=== PATIENT | female | born 1970 | race Two or more races ===

== ENCOUNTER 2016-09-01 14:36 | Emergency (ER) | payer MEDICAID ==
[~2016-09-01] VITALS: Ht 165.1 cm; Wt 68.0 kg
[2016-09-01] MEDS ORDERED: SODIUM CHLORIDE 0.9% 1,000 ML IVB ONE (16:02)
[2016-09-01 16:23] LABS: Basophils # (auto) 0 uL; Basophils % (auto) 0.4 % (0.0-2.0); DEFINITIVE VIEW TRANSMISSION; Eosinophils # (auto) 0 uL; Eosinophils % (auto) 0.2 % (0.0-7.0); Hematocrit 36.2 % (36.0-46.0); Lymphocytes # (auto) 1.6 uL; Lymphocytes % (auto) 16.8 % (10.0-50.0); Mean Corpuscular Hemoglobin 22.2 pg (28.0-32.0); Mean Corpuscular Hgb Conc. 30.5 g/dL (32.0-36.0); Mean Corpuscular Volume 72.8 fL (80.0-100.0); Mean Platelet Volume 7.5 fL (7.4-10.4); Monocytes # (auto) 0.4 uL; Monocytes % (auto) 4.1 % (0.0-12.0); Neutrophils # (auto) 7.4 uL; Neutrophils % (auto) 78.5 % (37.0-80.0); Platelet Count (auto) 353 10^3/uL (140-450); White Blood Cell 9.4 10^3/uL (4.4-10.8)
[2016-09-01 16:28] LABS: Alkaline Phosphatase 124 U/L (45-117); Anion Gap 10 (5-15); Aspartate Aminotransferase 23 U/L (15-37); BUN/Creatinine Ratio 9.6; Bilirubin, Total 0.3 mg/dL (0.2-1.0); Blood Urea Nitrogen 8 mg/dL (7-18); Calcium 8.4 mg/dL (8.5-10.1); Carbon Dioxide 25 mmol/L (21-32); Chloride 105 mmol/L (98-107); GFR African American 96 mL/min; GFR Non-African American 79 mL/min; Glucose 102 mg/dL (74-106); Magnesium 2.5 mg/dL (1.6-2.6); Potassium 3.5 mmol/L (3.5-5.1); Salicylate < 1.7 mg/dL (2.8-20.0); Sodium 140 mmol/L (136-145); Total Protein 8.1 g/dL (6.4-8.2)
[2016-09-01 16:39] LABS: Acetaminophen < 2.0 ug/mL (10-30)
[2016-09-01] MEDS ORDERED: LORazepam 2MG/ML-1ML VIAL IV ONE ×2 (16:45→19:45)
[2016-09-01 16:56] LABS: Red Cell Distribution Width 20.3 % (11.6-16.0)
[2016-09-01] MEDS ORDERED: SODIUM CHLORIDE 0.9% 1,000 ML IV ONE (18:00)
[2016-09-01] MEDS ORDERED: THIAMINE INJ 100 MG, MULTIPLE VITAMIN 10 ML, FOLIC ACID 1 MG, MAGNESIUM SULF SDV 50% 8 ... IV ONE ×5 (18:00)
[2016-09-01 18:10] LABS: Urine Bilirubin Negative (Negative); Urine Color Yellow (Yellow); Urine Glucose Normal (Normal); Urine Ketone Negative (Negative); Urine Nitrite Negative (Negative); Urine RBC 38 /hpf (0 - 4); Urine Squamous Epithelial Cell FEW /hpf (<5); Urine Urobilinogen Normal (Negative); Urine pH 5.5 (5.0-8.0)
[2016-09-01 18:14] LABS: Urine Blood 3+ /uL (Negative)
[2016-09-01] MEDS ORDERED: ACETAMINOPHEN 325 MG TAB PO ONE (18:15)
[2016-09-01 21:10] LABS: Platelet Estimate Adequate
[2016-09-01 21:11] LABS: Anisocytosis Moderate; Hypochromia Slight
[2016-09-01] MEDS ORDERED: cefTRIAXone 1GM/50ML D5W 50 ML IV ONE (22:15)
[2016-09-02 00:57] VITALS: BP 114/73
== END 2016-09-02 01:49 | disposition home or self-care (01) ==
LOC: ER 14:42 → EDBD 14:42 → ER 09-02 01:49
DX: F10.129 Alcohol abuse with intoxication, unspecified (principal); N39.0 Urinary tract infection, site not specified; R55 Syncope and collapse; F17.210 Nicotine dependence, cigarettes, uncomplicated; R42 Dizziness and giddiness; Z91.410 Personal history of adult physical and sexual abuse
CPT/HCPCS: 36415; 70450; 71010; 80053; 80320; 80329; 81001; 81025; 82962; 83735; 85025; 94761; 96361; 96365; 96366; 96368; 96375; 99285; G0434; J0696; J2060; J3411; J3475; J7030